=== PATIENT | male | born 1955 | race Caucasian/White ===

== ENCOUNTER 2016-11-09 11:38 | Inpatient (IN) | payer OTHER ==
[2016-11-09 14:15] VITALS: BMI 29.5
--- NOTE | 2016-11-09 19:11 | HP ---
CIWA Score - CIWA Score Nausea/Vomitin-Mild Nausea/No Vomiting Muscle Tremors: 4-Moderate,w/Arms Extend Anxiety: 4-Mod. Anxious/Guarded Agitation: 4-Moderately Restless Paroxysmal Sweats: 1-Minimal Palms Moist Orientation: 0-Oriented Tacttile Disturbances: 0-None Auditory Disturbances: 0-None Visual Disturbances: 0-None Headache: 0-None Present CIWA-Ar Total Score: 14 Admission ROS BHS - HPI Chief Complaint: WITHDRAWAL SX LAST DETOX 07/30-08/04/16 AT [facility] Allergies/Adverse Reactions: Allergies Allergy/AdvReac Type Severity Reaction Status Date / Time No Known Allergies Allergy Verified 11/09/16 16:49 History of Present Illness: 61 YEARS OLD MALE WITH LONG HISTORY OF ALCOHOL NICOTINE COCAINE MARIJUANA DEPENDENCE HAS GERD AND RIGHT HIP REPLACEMENT AND BIPOLAR II IS ADMITTED TO DETOX Exam Limitations: No Limitations - Ebola screening Have you traveled outside of the country in the last 21 days: No Have you had contact with anyone from an Ebola affected area: No Have you been sick,other than usual withdrawal symptoms: No Do you have a fever: No - Review of Systems Constitutional: Chills, Changes in sleep, Weight Stable EENT: reports: No Symptoms Reported Respiratory: reports: No Symptoms reported Cardiac: reports: No Symptoms Reported GI: reports: Nausea, Poor Fluid Intake, Indigestion, Abdominal cramping : reports: No Symptoms Reported Musculoskeletal: reports: Back Pain (ARTHRITIS), Joint Pain (SHOULDERS) Integumentary: reports: No Symptoms Reported Neuro: reports: Tremors Endocrine: reports: No Symptoms Reported Hematology: reports: No Symptoms Reported Psychiatric: reports: Judgement Intact, Mood/Affect Appropiate, Orientated x3 Other Systems: Reviewed and Negative Patient History - Patient Medical History Hx Anemia: No Hx Asthma: No Hx Chronic Obstructive Pulmonary Disease (COPD): No Hx Cancer: No Hx Cardiac Disorders: No Hx Congestive Heart Failure: No Hx Hypertension: Yes (not currently on meds.) Hx Hypercholesterolemia: Yes (BY HISTORY NO MED) Hx Pacemaker: No HX Cerebrovascular Accident: No Hx Seizures: No Hx Diabetes: No Hx Gastrointestinal Disorders: Yes Hx Liver Disease: No Hx Genitourinary Disorders: No Hx Sexually Transmitted Disorders: No Hx Renal Disease (ESRD): No Hx Thyroid Disease: Yes (HYPOTHYROIDISM NO MED) Hx Human Immunodeficiency Virus (HIV): No Hx Hepatitis C: No Hx Depression: No Hx Suicide Attempt: Yes (Pt tried to overdose in 2012) Hx Bipolar Disorder: Yes (BIPOLAR II) Hx Schizophrenia: No - Patient Surgical History Past Surgical History: Yes Hx Neurologic Surgery: No Hx Cataract Extraction: No Hx Cardiac Surgery: No Hx Lung Surgery: No Hx Breast Surgery: No Hx Breast Biopsy: No Hx Abdominal Surgery: No Hx Appendectomy: No Hx Cholecystectomy: No Hx Genitourinary Surgery: No Hx Orthopedic Surgery: Yes (R hip replacement in 05/11) Anesthesia Reaction: No - PPD History Previous Implant?: Yes Documented Results: Negative w/o proof Implanted On Prior R Admission?: Yes Date: 08/02/15 PPD to be Administered?: Yes - Smoking Cessation Smoking history: Current every day smoker Have you smoked in the past 12 months: Yes Aproximately how many cigarettes per day: 40 Cigars Per Day: 5 Hx Chewing Tobacco Use: No Initiated information on smoking cessation: Yes 'Breaking Loose' booklet given: 11/09/16 - Substance & Tx. History Hx Alcohol Use: Yes Hx Substance Use: Yes Substance Use Type: Alcohol, Cocaine, Marijuana Hx Substance Use Treatment: Yes (07/30-08/05/15 [facility] DETOX) - Substances Abused Alcohol Route: Oral Frequency: Daily Amount used: 6PK BEER Age of first use: 13 Date of Last Use: 11/08/16 Crack Route: Smoking Frequency: Daily Amount used: $60 Age of first use: 28 Date of Last Use: 11/07/16 Marijuana/Hashish Route: Smoking Frequency: Daily Amount used: 3 JOINTS Age of first use: 13 Date of Last Use: 11/08/16 Family Disease History - Family Disease History Family Disease History: Respiratory: Father (ASTHMA,ALCOHOL ), Other: Father, Mother (ALCOHOLIC ), Sister (ALCOHOLIC) Admission Physical Exam BHS - Vital Signs Vital Signs: Vital Signs - 24 hr 11/09/16 14:03 Temperature 97 F L Pulse Rate 64 Respiratory 20 Rate Blood Pressure 135/84 - Physical General Appearance: Yes: Appropriately Dressed, Mild Distress, Obese, Tremorous , Irritable, Sweating, Anxious HEENTM: Yes: Hearing grossly Normal, Normal ENT Inspection, Normocephalic, Normal Voice Respiratory: Yes: Chest Non-Tender, Lungs Clear, Normal Breath Sounds, No Respiratory Distress, No Accessory Muscle Use Neck: Yes: Supple, Trachea in good position Breast: Yes: Breasts Symetrical Cardiology: Yes: Regular Rhythm, Regular Rate, S1, S2 Abdominal: Yes: Non Tender, Soft Genitourinary: Yes: Within Normal Limits Back: Yes: Normal Inspection Musculoskeletal: Yes: full range of Motion, Gait Steady Extremities: Yes: Normal Inspection, Normal Range of Motion, Non-Tender, Tremors Neurological: Yes: Fully Oriented, Alert, Motor Strength 5/5, Normal Mood/Affect , Normal Response Integumentary: Yes: Warm Lymphatic: Yes: Within Normal Limits - Diagnostic (1) Alcohol dependence with uncomplicated withdrawal Current Visit: Yes Status: Acute (2) Bipolar II disorder Current Visit: Yes Status: Suspected (3) Cannabis dependence, uncomplicated Current Visit: Yes Status: Chronic (4) Cocaine dependence, uncomplicated Current Visit: Yes Status: Chronic (5) GERD with esophagitis Current Visit: Yes Status: Chronic (6) History of right hip replacement Current Visit: Yes Status: Resolved Comment: 2015 Cleared for Admission [facility] - Detox or Rehab [facility] Level of Care: Medically Managed Detox Regimen/Protocol: Librium [facility] Breath Alcohol Content Breath Alcohol Content: 0 Urine Drug Screen - Results Drug Screen Negative: No Urine Drug Screen Results: THC-Marijuana, LAZARO-Cocaine
[2016-11-09] MEDS ORDERED: MAGNESIUM CITRATE 300 ML BOTTLE PO PRN (19:18)
[2016-11-09] MEDS ORDERED: MAGNESIUM HYDROX 2400MG/30ML ORAL SUSPENSION 30 ML CUP PO PRN (19:18)
[2016-11-09] MEDS ORDERED: MAG HYDROX/AL HYDROX/SIMETH 30 ML UNIT-DOSE CUP PO PRN (19:18)
[2016-11-09] MEDS ORDERED: diphenhydrAMINE HCL 50 MG CAPSULE PO PRN (19:18)
[2016-11-09] MEDS ORDERED: P-EPHED 60MG/TRIPROLIDI 2.5MG TABLET PO PRN (19:18)
[2016-11-09] MEDS ORDERED: MENTHOL/PHENOL 1 EACH UD MM PRN (19:18)
[2016-11-09] MEDS ORDERED: guaiFENesin/D-METHORPHAN HB 10 ML UNIT-DOSE CUPS PO PRN (19:18)
[2016-11-09] MEDS: chlordiazePOXIDE HCL 25 MG CAPSULE PO PRN (20:03)
[2016-11-09] MEDS: chlordiazePOXIDE HCL 25 MG CAPSULE PO SCH (22:31)
[2016-11-09] MEDS: THIAMINE HCL 100 MG TABLET (FP) PO SCH (22:32)
[2016-11-09] MEDS: NICOTINE POLACRILEX 4 MG GUM BC PRN (22:34)
[2016-11-09 23:09] LABS: URINE APPEARANCE CLEAR; URINE BILIRUBIN NEGATIVE (NEGATIVE); URINE BLOOD NEGATIVE (NEGATIVE); URINE COLOR YELLOW; URINE GLUCOSE (UA) NEGATIVE (NEGATIVE); URINE KETONE NEGATIVE (NEGATIVE); URINE LEUK ESTERASE NEGATIVE (NEGATIVE); URINE NITRITE NEGATIVE (NEGATIVE); URINE PROTEIN NEGATIVE (NEGATIVE); URINE UROBILINOGEN NEGATIVE mg/dL (0.2-1.0)
[2016-11-10] MEDS: chlordiazePOXIDE HCL 25 MG CAPSULE PO SCH ×4 (05:45→22:30)
[2016-11-10] MEDS: ACETAMINOPHEN 325 MG TABLET (FP) PO PRN ×2 (05:46→22:30)
[2016-11-10] MEDS: NICOTINE POLACRILEX 4 MG GUM BC PRN ×5 (07:28→22:32)
[2016-11-10 10:03] LABS: MCH 33.9 pg (25.7-33.7); MCHC 34.4 g/dl (32.0-35.9); MEAN CELL VOLUME 98.6 fl (80-96); MEAN PLT VOLUME 6.9 fl (7.5-11.1); PLATELET COUNT 284 K/MM3 (134-434); RDW 12.6 % (11.9-15.9); WHITE BLOOD COUNT 7.4 K/mm3 (4.0-10.0)
--- NOTE | 2016-11-10 10:08 | PN ---
S CIWA - CIWA Score Nausea/Vomitin Muscle Tremors: 3 Anxiety: 3 Agitation: 2 Paroxysmal Sweats: 1-Minimal Palms Moist Orientation: 0-Oriented Tacttile Disturbances: 1-Very Mild Itch/Numbness Auditory Disturbances: 1-Very Mild Visual Disturbances: 1-Very Mild Sensitivity Headache: 2-Mild CIWA-Ar Total Score: 17 BHS Progress Note (SOAP) Subjective: ALERT,IRRITABLE,ANXIOUS,INTERRUPTED SLEEP,TREMOR Objective: 11/10/16 10:06 Vital Signs Temperature 97.2 F L 11/10/16 06:23 Pulse Rate 53 L 11/10/16 06:23 Respiratory Rate 16 11/10/16 06:23 Blood Pressure 128/87 11/10/16 06:23 O2 Sat by Pulse Oximetry (%) EKG SINUS BRADYCARDIA IST DEGREE AV BLOCK RATE 57/MIN NO CHEST PAIN,NO SOB,NO DIZZINESS Laboratory Last Values Urine Color Yellow 11/09/16 19:05 Urine Appearance Clear 11/09/16 19:05 Urine pH 5.0 (5.0-8.0) 11/09/16 19:05 Ur Specific [place] 1.025 (1.005-1.025) 11/09/16 19:05 Urine Protein Negative (NEGATIVE) 11/09/16 19:05 Urine Glucose (UA) Negative (NEGATIVE) 11/09/16 19:05 Urine Ketones Negative (NEGATIVE) 11/09/16 19:05 Urine Blood Negative (NEGATIVE) 11/09/16 19:05 Urine Nitrite Negative (NEGATIVE) 11/09/16 19:05 Urine Bilirubin Negative (NEGATIVE) 11/09/16 19:05 Urine Urobilinogen Negative mg/dL (0.2-1.0) 11/09/16 19:05 Ur Leukocyte Esterase Negative (NEGATIVE) 11/09/16 19:05 LABS PENDING Assessment: 11/10/16 10:07 WITHDRAWAL SYMPTOM Plan: CONTINUE DETOX
[2016-11-10 10:18] LABS: ALBUMIN 3.4 g/dl (3.4-5.0); ANION GAP 7 (8-16); CALCIUM 8.9 mg/dL (8.5-10.1); CO2 29 mmol/L (21-32); GLUCOSE,RANDOM 90 mg/dL (74-106)
[2016-11-10 10:22] LABS: ALK PHOS 66 U/L (45-117); BILIRUBIN,TOTAL 0.9 mg/dL (0.2-1.0); SGOT/AST 17 U/L (15-37); SGPT/ALT 18 U/L (12-78); TOT PROT 6.3 g/dl (6.4-8.2)
[2016-11-10] MEDS: PATIENT'S OWN MEDICATION (NON-FORMULARY) (Lansoprazole 30 MG) PO SCH (10:36)
[2016-11-10] MEDS: PRENATAL VITAMINS W/ FOLIC ACID TABLET (FP) PO SCH (10:36)
[2016-11-10] MEDS: NICOTINE 21 MG/24 HOURS TOPICAL PATCH TD SCH (10:38)
--- NOTE | 2016-11-10 12:26 | CONSULT ---
[facility] Psychiatric Consult - Data Date of interview: 11/10/16 Admission source: [facility] Identifying data: Readmission to [facility] for this 61 y/o male seeking detox treatment on for alcohol,marijuana and cocaine (crack) dependence.Patient is single without children,domiciled,unemployed and supported on [facility] benefits. Substance Abuse History: Patient admits to abusing alcohol since age 13.Consumes one 6 pack of beer daily but prefers wine when money is available.Last used alcohol on 11/08/16.Smokes 3 joints/day.Age 13 is the onset of marijuana abuse (last use on ).Started using crack in 1983.Spends an average of 60 dollars/day.last use : 11/06/16.Patient smokes 2 1/2 packs of cigarettes daily. 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 Psychiatric History: Diagnosed with Bipolar II disorder.Patient presents with a history of multiple psychiatric hospitalizations since 1979 (more than 10).He is known to [facility] (last admission in 2014 + current site of OPD care).Managed by Dr Rosy Urena on a regimen of trazodone 100 mg/hs + paxil 30 mg/day + latuda 30 mg/day + lamictal 200 mg/day.Last took his medications two days ago (self report).Mr Hutson reports a history of suicide attempt via overdose with medications five years ago.Patient is a good and reliable historian. Physical/Sexual Abuse/Trauma History: Patient denies. Additional Comment: Urine Drug Screen is positive for marijuana and cocaine. Mental Status Exam - Mental Status Exam Alert and Oriented to: Time, Place, Person Cognitive Function: Good Patient Appearance: Well Groomed Mood: Hopeful, Euthymic Affect: Appropriate, Normal Range Patient Behavior: Appropriate, Cooperative Speech Pattern: Clear Voice Loudness: Normal Thought Process: Goal Oriented Thought Disorder: Not Present Hallucinations: Denies Suicidal Ideation: Denies Homicidal Ideation: Denies Insight/Judgement: Poor Sleep: Fair Appetite: Good Muscle strength/Tone: Normal Gait/Station: Normal Psychiatric Findings - Problem List ([place] 1, 2,3) (1) Bipolar II disorder Current Visit: Yes Status: Chronic (2) Alcohol dependence with uncomplicated withdrawal Current Visit: Yes Status: Acute (3) Cannabis dependence, uncomplicated Current Visit: Yes Status: Acute (4) Cocaine dependence, uncomplicated Current Visit: Yes Status: Acute (5) Nicotine dependence Current Visit: Yes Status: Acute (6) GERD with esophagitis Current Visit: Yes Status: Chronic (7) History of right hip replacement Current Visit: Yes Status: Resolved Comment: 2016 (8) HTN (hypertension) Current Visit: Yes Status: Chronic Qualifiers: Hypertension type: essential hypertension (9) Hypercholesterolemia Current Visit: Yes Status: Chronic (10) Hypothyroidism Current Visit: Yes Status: Chronic Qualifiers: Hypothyroidism type: acquired Qualified Code(s): E03.9 - Hypothyroidism, unspecified - Initial Treatment Plan Initial Treatment Plan: Psychoeducation and support.Previous records are revisited.[facility] report appreciated.Detoxification is in progress.Recent pharmacy claims noted : scripts filled on 11/04/16 at [facility] # [id number] for latuda 20 mg/day + lamictal 200 mg/day + paxil 30 mg/day + trazodone 100 mg/hs.Re-ordered on .Side effects/benefits of each medication discussed with the patient.Made aware,in particular,of potential for exfoliative dermatitis (lamotrigine) and instructed to alert staff if occurrence of skin rash.Mr Hutson endorses history of good tolerability and efficacy.Wants to stay on this regimen.Observation.NO scripts needed at discharge.
[2016-11-10] MEDS: chlordiazePOXIDE HCL 25 MG CAPSULE PO PRN (14:05)
[2016-11-10] MEDS: LURASIDONE HCL 20 MG TABLET PO SCH (15:25)
--- NOTE | 2016-11-10 17:07 | EKG ---
Test Reason : Blood Pressure : / mmHG Vent. Rate : 057 BPM Atrial Rate : 057 BPM P-R Int : 224 ms QRS Dur : 076 ms QT Int : 392 ms P-R-T Axes : 067 015 032 degrees QTc Int : 381 ms SINUS BRADYCARDIA WITH 1ST DEGREE A-V BLOCK EARLY TRANSITION IN v2 NO PREVIOUS ECGS AVAILABLE Confirmed by ANDREZ TAVERAS MD ([id number]) on 11/10/2016 5:07:20 PM Referred By: Confirmed By:ANDREZ TAVERAS MD
[2016-11-10] MEDS: THIAMINE HCL 100 MG TABLET (FP) PO SCH (22:30)
[2016-11-10] MEDS: traZODone HCL 100 MG TABLET (FP) PO SCH (22:30)
[2016-11-11] MEDS: chlordiazePOXIDE HCL 25 MG CAPSULE PO SCH ×3 (06:10→17:58)
[2016-11-11] MEDS: NICOTINE POLACRILEX 4 MG GUM BC PRN ×5 (06:12→22:35)
[2016-11-11] MEDS: ACETAMINOPHEN 325 MG TABLET (FP) PO PRN (06:13)
--- NOTE | 2016-11-11 10:46 | PN ---
[facility] CIWA - CIWA Score Nausea/Vomitin-Mild Nausea/No Vomiting Muscle Tremors: 2 Anxiety: 2 Agitation: 2 Paroxysmal Sweats: 3 Orientation: 0-Oriented Tacttile Disturbances: 1-Very Mild Itch/Numbness Auditory Disturbances: 0-None Visual Disturbances: 0-None Headache: 0-None Present CIWA-Ar Total Score: 11 S Progress Note (SOAP) Subjective: interrupted sleep, sweats, shakes Objective: 11/11/16 10:46 Vital Signs Temperature 97 F L 11/11/16 06:47 Pulse Rate 60 11/11/16 06:47 Respiratory Rate 16 11/11/16 06:47 Blood Pressure 110/73 11/11/16 06:47 O2 Sat by Pulse Oximetry (%) Laboratory Tests 11/09/16 11/10/16 11/10/16 19:05 06:30 06:30 WBC 7.4 RBC 4.33 Hgb 14.7 Hct 42.7 MCV 98.6 H MCH 33.9 H MCHC 34.4 RDW 12.6 D Plt Count 284 MPV 6.9 L Sodium 139 Potassium 4.5 Chloride 103 Carbon Dioxide 29 Anion Gap 7 L BUN 18 Creatinine 1.0 Creat Clearance w eGFR > 60 Random Glucose 90 Calcium 8.9 Total Bilirubin 0.9 D AST 17 D ALT 18 D Alkaline Phosphatase 66 D Total Protein 6.3 L Albumin 3.4 Urine Color Yellow Urine Appearance Clear Urine pH 5.0 Ur Specific [place] 1.025 Urine Protein Negative Urine Glucose (UA) Negative Urine Ketones Negative Urine Blood Negative Urine Nitrite Negative Urine Bilirubin Negative Urine Urobilinogen Negative Ur Leukocyte Esterase Negative RPR Titer 11/10/16 06:30 WBC RBC Hgb Hct MCV MCH MCHC RDW Plt Count MPV Sodium Potassium Chloride Carbon Dioxide Anion Gap BUN Creatinine Creat Clearance w eGFR Random Glucose Calcium Total Bilirubin AST ALT Alkaline Phosphatase Total Protein Albumin Urine Color Urine Appearance Urine pH Ur Specific [place] Urine Protein Urine Glucose (UA) Urine Ketones Urine Blood Urine Nitrite Urine Bilirubin Urine Urobilinogen Ur Leukocyte Esterase RPR Titer Nonreactive pt aox3 in nad ambulating 11/11/16 10:51 Assessment: 11/11/16 10:50 withdrawal sxs Plan: cont. detox increase fluids
[2016-11-11] MEDS: PARoxetine HCL 10 MG TABLET (FP) PO SCH (11:27)
[2016-11-11] MEDS: lamoTRIgine 100 MG TABLET (FP) PO SCH (11:27)
[2016-11-11] MEDS: LURASIDONE HCL 20 MG TABLET PO SCH (11:27)
[2016-11-11] MEDS: PATIENT'S OWN MEDICATION (NON-FORMULARY) (Lansoprazole 30 MG) PO SCH (11:29)
[2016-11-11] MEDS: NICOTINE 21 MG/24 HOURS TOPICAL PATCH TD SCH (11:31)
[2016-11-11] MEDS: PRENATAL VITAMINS W/ FOLIC ACID TABLET (FP) PO SCH (11:32)
[2016-11-11] MEDS: chlordiazePOXIDE HCL 25 MG CAPSULE PO PRN (14:06)
[2016-11-11] MEDS: traZODone HCL 100 MG TABLET (FP) PO SCH (22:35)
[2016-11-11] MEDS: chlordiazePOXIDE 5 MG CAPSULE PO SCH (22:35)
[2016-11-11] MEDS: THIAMINE HCL 100 MG TABLET (FP) PO SCH (22:35)
[2016-11-12] MEDS: chlordiazePOXIDE 5 MG CAPSULE PO SCH ×3 (06:03→17:47)
[2016-11-12] MEDS: PARoxetine HCL 10 MG TABLET (FP) PO SCH (11:04)
[2016-11-12] MEDS: lamoTRIgine 100 MG TABLET (FP) PO SCH (11:04)
[2016-11-12] MEDS: NICOTINE 21 MG/24 HOURS TOPICAL PATCH TD SCH (11:05)
[2016-11-12] MEDS: PRENATAL VITAMINS W/ FOLIC ACID TABLET (FP) PO SCH (11:05)
[2016-11-12] MEDS: PATIENT'S OWN MEDICATION (NON-FORMULARY) (Lansoprazole 30 MG) PO SCH (11:06)
[2016-11-12] MEDS: ACETAMINOPHEN 325 MG TABLET (FP) PO PRN ×2 (11:11→22:18)
--- NOTE | 2016-11-12 11:14 | PN ---
S Progress Note (SOAP) Subjective: ALERT,IRRITABLE,INTERRUPTED SLEEP Objective: 11/12/16 11:13 Vital Signs Temperature 97.7 F 11/12/16 10:00 Pulse Rate 65 11/12/16 10:00 Respiratory Rate 18 11/12/16 10:00 Blood Pressure 123/82 11/12/16 10:00 O2 Sat by Pulse Oximetry (%) Assessment: 11/12/16 11:13 WITHDRAWAL SYMPTOM Plan: CONTINUE DETOX,DISCHARGE IN AM
[2016-11-12] MEDS: NICOTINE POLACRILEX 4 MG GUM BC PRN ×4 (11:15→20:33)
[2016-11-12] MEDS: LURASIDONE HCL 20 MG TABLET PO SCH (11:22)
[2016-11-12] MEDS: chlordiazePOXIDE HCL 25 MG CAPSULE PO PRN (14:36)
[2016-11-12] MEDS: hydrOXYzine PAMOATE 50 MG CAPSULE (FP) PO PRN (19:38)
[2016-11-12] MEDS: THIAMINE HCL 100 MG TABLET (FP) PO SCH (22:16)
[2016-11-12] MEDS: traZODone HCL 100 MG TABLET (FP) PO SCH (22:16)
[2016-11-12] MEDS: chlordiazePOXIDE HCL 10 MG CAPSULE PO SCH (22:16)
[2016-11-13] MEDS: chlordiazePOXIDE HCL 10 MG CAPSULE PO SCH ×2 (05:42→11:07)
[2016-11-13] MEDS: ACETAMINOPHEN 325 MG TABLET (FP) PO PRN ×3 (05:43→21:41)
[2016-11-13] MEDS: NICOTINE POLACRILEX 4 MG GUM BC PRN ×4 (05:44→21:42)
--- NOTE | 2016-11-13 08:22 | DS ---
[facility] Detox Discharge Summary Admission Date: 11/09/16 Discharge Date: 11/13/16 - History Present History: Alcohol Dependence, Cannabis Dependence, Cocaine Dependence Additional Comments: FOLLOW UP WITH AFTER CARE PROGRAM ARRANGEMENT Pertinent Past History: GERD RIGHT HIP REPLACEMENT BIPOLAR 2 DISORDER - Physical Exam Results Vital Signs: Vital Signs Temperature 98.1 F 11/13/16 06:00 Pulse Rate 52 L 11/13/16 06:00 Respiratory Rate 18 11/13/16 06:00 Blood Pressure 107/67 11/13/16 06:00 O2 Sat by Pulse Oximetry (%) Pertinent Admission Physical Exam Findings: WITHDRAWAL SYMPTOM - Treatment Hospital Course: Detox Protocol Followed, Detoxed Safely, Responded well, Discharged Condition Good Patient has Accepted a Rehab Referral to: [facility] - Medication Discharge Medications: Ambulatory Orders Trazodone HCl [Desyrel -] 100 mg PO HS 07/31/15 Lamotrigine [Lamictal -] 200 mg PO DAILY #30 tablet 08/01/15 Lurasidone HCl [Latuda -] 20 mg PO DAILY #30 tablet 08/01/15 Paroxetine HCl [Paxil -] 30 mg PO DAILY #30 tablet 08/01/15 Lansoprazole [Prevacid -] 30 mg PO DAILY 11/09/16 Lansoprazole [Prevacid -] 30 mg PO DAILY 11/09/16 Acetaminophen [Tylenol Extra Strength] 500 mg PO Q4H PRN #30 tab 11/12/16 Aspirin [ASA -] 81 mg PO DAILY #30 tab 11/12/16 - AMA Did Patient Leave Against Medical Advice: No
[2016-11-13] MEDS: LURASIDONE HCL 20 MG TABLET PO SCH (11:06)
[2016-11-13] MEDS: lamoTRIgine 100 MG TABLET (FP) PO SCH (11:07)
[2016-11-13] MEDS: NICOTINE 21 MG/24 HOURS TOPICAL PATCH TD SCH (11:07)
[2016-11-13] MEDS: PARoxetine HCL 10 MG TABLET (FP) PO SCH (11:07)
[2016-11-13] MEDS: PATIENT'S OWN MEDICATION (NON-FORMULARY) (Lansoprazole 30 MG) PO SCH (11:10)
[2016-11-13] MEDS: PRENATAL VITAMINS W/ FOLIC ACID TABLET (FP) PO SCH (11:16)
[2016-11-13] MEDS: LOPERAMIDE HCL 2 MG CAPSULE PO PRN ×2 (11:41→18:08)
--- NOTE | 2016-11-13 14:38 | HP ---
Psychiatrist Admission - Data Date of interview: 11/13/16 Admission source: 6N Identifying data: This is the first 5N inpatient rehabilitation admission for this 61 year ols antoinette unemployed and currently homeless male without children, supported on SSD. Medical History: GERD, HTN, smokes cigarettes 2.5 PPD. Psychiatric History: Carries a diagnosis of BIpolar II. Patient reports first psychiatric treatment in s "I was withdrawing from stimulants", saw the private psychiatrist and was under the treatment. Reports several "more than 10 " psychiatric hospitalizations with most recent 3 years ago at [facility], sees the psychiatrist at [facility] opd Dr.Susan Urena and currently on Lamictal 200 mg po daily, Latuda 30 mg daily, Trazodone 100 mg po hs, Paxil 30 mg po daily. He continued the same medications while in detox. Patient reported that he might leave because he wanted to go to the different program ([facility]). Physical/Sexual Abuse/Trauma History: Denies history of sexual, physical and verbal abuse. Vital Signs: Vital Signs - 24 hr 11/12/16 11/12/16 11/12/16 15:52 18:18 21:59 Temperature 98.1 F 97.0 F L 98.1 F Pulse Rate 63 58 L 60 Respiratory 18 18 18 Rate Blood Pressure 131/91 128/85 136/87 11/13/16 11/13/16 11/13/16 00:30 03:30 06:00 Temperature 98.1 F Pulse Rate 52 L Respiratory 18 18 18 Rate Blood Pressure 107/67 11/13/16 11/13/16 10:00 13:35 Temperature 97.9 F 98 F Pulse Rate 65 66 Respiratory 18 18 Rate Blood Pressure 129/75 116/80 Allergies/Adverse Reactions: Allergies Allergy/AdvReac Type Severity Reaction Status Date / Time No Known Allergies Allergy Verified 11/13/16 13:09 Date of last physical exam: 11/09/16 Concur with the findings of this exam: Yes - Substance Abuse/Tx History Hx Alcohol Use: Yes (since age 13, consumes one 6 packs of beer dailly) Substance Use Type: Cocaine (460 daily), Marijuana (started age age 13, daily use of 3 joints) Hx Substance Use Treatment: Yes ([facility], BlaisedERIN marvin ) - Admission Criteria Previous failed treatment: Yes Poor recovery environment: Yes Comorbidities: Yes Lacks judgement: Yes Mental Status Exam - Mental Status Exam Alert and Oriented to: Time, Place, Person Cognitive Function: Good Patient Appearance: Well Groomed Mood: Anxious Affect: Appropriate, Mood Congruent Patient Behavior: Cooperative Speech Pattern: Clear, Appropriate Voice Loudness: Normal Thought Process: Goal Oriented Thought Disorder: Not Present Hallucinations: Denies Suicidal Ideation: Denies Homicidal Ideation: Denies Insight/Judgement: Fair Sleep: Fair Appetite: Good Muscle strength/Tone: Normal Gait/Station: Normal Psychiatric Findings - Problem List ([place] 1, 2,3) (1) Cannabis dependence, uncomplicated Current Visit: Yes Status: Acute (2) Cocaine dependence, uncomplicated Current Visit: Yes Status: Acute (3) Nicotine dependence Current Visit: Yes Status: Acute (4) Bipolar II disorder Current Visit: Yes Status: Chronic (5) Alcohol dependence Current Visit: Yes Status: Acute - Initial Treatment Plan Initial Treatment Plan: will continue current medications, monitor progress as needed.
[2016-11-13] MEDS: THIAMINE HCL 100 MG TABLET (FP) PO SCH (21:40)
[2016-11-13] MEDS: traZODone HCL 100 MG TABLET (FP) PO SCH (21:40)
[2016-11-14] MEDS: ACETAMINOPHEN 325 MG TABLET (FP) PO PRN ×2 (06:28→21:17)
[2016-11-14] MEDS: LOPERAMIDE HCL 2 MG CAPSULE PO PRN ×2 (06:28→21:17)
[2016-11-14] MEDS: NICOTINE POLACRILEX 4 MG GUM BC PRN ×5 (06:28→21:18)
[2016-11-14] MEDS: PATIENT'S OWN MEDICATION (NON-FORMULARY) (Lansoprazole 30 MG) PO SCH (09:51)
[2016-11-14] MEDS: PARoxetine HCL 10 MG TABLET (FP) PO SCH (09:51)
[2016-11-14] MEDS: PRENATAL VITAMINS W/ FOLIC ACID TABLET (FP) PO SCH (09:51)
[2016-11-14] MEDS: NICOTINE 21 MG/24 HOURS TOPICAL PATCH TD SCH (09:52)
[2016-11-14] MEDS: hydrOXYzine PAMOATE 50 MG CAPSULE (FP) PO PRN ×2 (09:52→17:55)
[2016-11-14] MEDS: lamoTRIgine 100 MG TABLET (FP) PO SCH (09:52)
[2016-11-14] MEDS: LURASIDONE HCL 20 MG TABLET PO SCH (12:13)
[2016-11-14] MEDS: traZODone HCL 100 MG TABLET (FP) PO SCH (21:16)
[2016-11-14] MEDS: THIAMINE HCL 100 MG TABLET (FP) PO SCH (21:16)
[2016-11-15] MEDS: LOPERAMIDE HCL 2 MG CAPSULE PO PRN ×2 (06:29→17:36)
[2016-11-15] MEDS: NICOTINE POLACRILEX 4 MG GUM BC PRN ×4 (06:29→21:16)
[2016-11-15] MEDS: ACETAMINOPHEN 325 MG TABLET (FP) PO PRN ×2 (06:29→21:17)
[2016-11-15] MEDS: PATIENT'S OWN MEDICATION (NON-FORMULARY) (Lansoprazole 30 MG) PO SCH (09:50)
[2016-11-15] MEDS: lamoTRIgine 100 MG TABLET (FP) PO SCH (09:50)
[2016-11-15] MEDS: hydrOXYzine PAMOATE 50 MG CAPSULE (FP) PO PRN ×2 (09:50→17:34)
[2016-11-15] MEDS: PRENATAL VITAMINS W/ FOLIC ACID TABLET (FP) PO SCH (09:50)
[2016-11-15] MEDS: PARoxetine HCL 10 MG TABLET (FP) PO SCH (09:50)
[2016-11-15] MEDS: LURASIDONE HCL 20 MG TABLET PO SCH (09:51)
[2016-11-15] MEDS: NICOTINE 21 MG/24 HOURS TOPICAL PATCH TD SCH (09:53)
[2016-11-15] MEDS: traZODone HCL 100 MG TABLET (FP) PO SCH (21:16)
[2016-11-15] MEDS: THIAMINE HCL 100 MG TABLET (FP) PO SCH (21:16)
[2016-11-15] MEDS ORDERED: DIPHENOXYLATE 2.5/ATROPINE.025 1 COMBO TABLET PO PRN (22:01)
[2016-11-16] MEDS: ACETAMINOPHEN 325 MG TABLET (FP) PO PRN ×2 (06:12→21:19)
[2016-11-16] MEDS: NICOTINE POLACRILEX 4 MG GUM BC PRN ×3 (06:13→21:21)
[2016-11-16] MEDS: NICOTINE 21 MG/24 HOURS TOPICAL PATCH TD SCH (09:47)
[2016-11-16] MEDS: LURASIDONE HCL 20 MG TABLET PO SCH (09:48)
[2016-11-16] MEDS: PATIENT'S OWN MEDICATION (NON-FORMULARY) (Lansoprazole 30 MG) PO SCH (09:48)
[2016-11-16] MEDS: lamoTRIgine 100 MG TABLET (FP) PO SCH (09:49)
[2016-11-16] MEDS: PRENATAL VITAMINS W/ FOLIC ACID TABLET (FP) PO SCH (09:49)
[2016-11-16] MEDS: PARoxetine HCL 10 MG TABLET (FP) PO SCH (09:52)
[2016-11-16] MEDS: hydrOXYzine PAMOATE 50 MG CAPSULE (FP) PO PRN ×2 (10:06→17:56)
[2016-11-16] MEDS: THIAMINE HCL 100 MG TABLET (FP) PO SCH (21:18)
[2016-11-16] MEDS: traZODone HCL 100 MG TABLET (FP) PO SCH (21:18)
[2016-11-17] MEDS: PATIENT'S OWN MEDICATION (NON-FORMULARY) (Lansoprazole 30 MG) PO SCH (10:04)
[2016-11-17] MEDS: PRENATAL VITAMINS W/ FOLIC ACID TABLET (FP) PO SCH (10:04)
[2016-11-17] MEDS: lamoTRIgine 100 MG TABLET (FP) PO SCH (10:04)
[2016-11-17] MEDS: PARoxetine HCL 10 MG TABLET (FP) PO SCH (10:04)
[2016-11-17] MEDS: LURASIDONE HCL 20 MG TABLET PO SCH (10:05)
[2016-11-17] MEDS: NICOTINE 21 MG/24 HOURS TOPICAL PATCH TD SCH (10:05)
[2016-11-17] MEDS: hydrOXYzine PAMOATE 50 MG CAPSULE (FP) PO PRN ×2 (10:07→14:13)
--- NOTE | 2016-11-17 13:32 | PN ---
BHS Progress Note Note: having pain in lower abdomen,stated soft,no distension,mild pain on palpation in left,no tenderness,bowel sound active
[2016-11-17] MEDS: NICOTINE POLACRILEX 4 MG GUM BC PRN ×2 (14:14→21:14)
[2016-11-17 16:29] LABS: MCH 33.3 pg (25.7-33.7); MCHC 33.4 g/dl (32.0-35.9); MEAN CELL VOLUME 99.5 fl (80-96); MEAN PLT VOLUME 7.3 fl (7.5-11.1); PLATELET COUNT 277 K/MM3 (134-434); WHITE BLOOD COUNT 11.3 K/mm3 (4.0-10.0)
[2016-11-17] MEDS: THIAMINE HCL 100 MG TABLET (FP) PO SCH (21:14)
[2016-11-17] MEDS: traZODone HCL 100 MG TABLET (FP) PO SCH (21:14)
[2016-11-18] MEDS: NICOTINE POLACRILEX 4 MG GUM BC PRN ×5 (06:10→21:10)
[2016-11-18] MEDS: ACETAMINOPHEN 325 MG TABLET (FP) PO PRN (06:10)
[2016-11-18] MEDS: LURASIDONE HCL 20 MG TABLET PO SCH (09:41)
[2016-11-18] MEDS: PATIENT'S OWN MEDICATION (NON-FORMULARY) (Lansoprazole 30 MG) PO SCH (09:41)
[2016-11-18] MEDS: lamoTRIgine 100 MG TABLET (FP) PO SCH (09:42)
[2016-11-18] MEDS: PARoxetine HCL 10 MG TABLET (FP) PO SCH (09:42)
[2016-11-18] MEDS: PRENATAL VITAMINS W/ FOLIC ACID TABLET (FP) PO SCH (09:42)
[2016-11-18] MEDS: NICOTINE 21 MG/24 HOURS TOPICAL PATCH TD SCH (09:43)
[2016-11-18] MEDS: hydrOXYzine PAMOATE 50 MG CAPSULE (FP) PO PRN (18:43)
[2016-11-18] MEDS: THIAMINE HCL 100 MG TABLET (FP) PO SCH (21:09)
[2016-11-18] MEDS: traZODone HCL 100 MG TABLET (FP) PO SCH (21:09)
[2016-11-19] MEDS: NICOTINE POLACRILEX 4 MG GUM BC PRN ×5 (05:57→21:38)
[2016-11-19] MEDS: PATIENT'S OWN MEDICATION (NON-FORMULARY) (Lansoprazole 30 MG) PO SCH (09:48)
[2016-11-19] MEDS: LURASIDONE HCL 20 MG TABLET PO SCH (09:49)
[2016-11-19] MEDS: lamoTRIgine 100 MG TABLET (FP) PO SCH (09:49)
[2016-11-19] MEDS: PRENATAL VITAMINS W/ FOLIC ACID TABLET (FP) PO SCH (09:49)
[2016-11-19] MEDS: PARoxetine HCL 10 MG TABLET (FP) PO SCH (09:49)
[2016-11-19] MEDS: NICOTINE 21 MG/24 HOURS TOPICAL PATCH TD SCH (09:49)
[2016-11-19] MEDS: hydrOXYzine PAMOATE 50 MG CAPSULE (FP) PO PRN ×2 (09:50→16:52)
--- NOTE | 2016-11-19 15:03 | PN ---
[facility] Progress Note Note: patient has no abdominal pain,had colonosopy 7 years ago,showed 2 polyps has been removed, normal bowel movement Laboratory Last Values WBC 11.3 K/mm3 (4.0-10.0) H D 11/17/16 13:30 RBC 4.35 M/mm3 (4.00-5.60) 11/17/16 13:30 Hgb 14.5 GM/dL (11.7-16.9) 11/17/16 13:30 Hct 43.2 % (35.4-49) 11/17/16 13:30 MCV 99.5 fl (80-96) H 11/17/16 13:30 MCH 33.3 pg (25.7-33.7) 11/17/16 13:30 MCHC 33.4 g/dl (32.0-35.9) 11/17/16 13:30 RDW 13.0 % (11.9-15.9) 11/17/16 13:30 Plt Count 277 K/MM3 (134-434) 11/17/16 13:30 MPV 7.3 fl (7.5-11.1) L 11/17/16 13:30 Sodium 139 mmol/L (136-145) 11/10/16 06:30 Potassium 4.5 mmol/L (3.5-5.1) 11/10/16 06:30 Chloride 103 mmol/L (98-107) 11/10/16 06:30 Carbon Dioxide 29 mmol/L (21-32) 11/10/16 06:30 Anion Gap 7 (8-16) L 11/10/16 06:30 BUN 18 mg/dL (7-18) 11/10/16 06:30 Creatinine 1.0 mg/dL (0.7-1.3) 11/10/16 06:30 Creat Clearance w eGFR > 60 (>60) 11/10/16 06:30 Random Glucose 90 mg/dL (74-106) 11/10/16 06:30 Calcium 8.9 mg/dL (8.5-10.1) 11/10/16 06:30 Total Bilirubin 0.9 mg/dL (0.2-1.0) D 11/10/16 06:30 AST 17 U/L (15-37) D 11/10/16 06:30 ALT 18 U/L (12-78) D 11/10/16 06:30 Alkaline Phosphatase 66 U/L (45-117) D 11/10/16 06:30 Total Protein 6.3 g/dl (6.4-8.2) L 11/10/16 06:30 Albumin 3.4 g/dl (3.4-5.0) 11/10/16 06:30 Urine Color Yellow 11/09/16 19:05 Urine Appearance Clear 11/09/16 19:05 Urine pH 5.0 (5.0-8.0) 11/09/16 19:05 Ur Specific [place] 1.025 (1.005-1.025) 11/09/16 19:05 Urine Protein Negative (NEGATIVE) 11/09/16 19:05 Urine Glucose (UA) Negative (NEGATIVE) 11/09/16 19:05 Urine Ketones Negative (NEGATIVE) 11/09/16 19:05 Urine Blood Negative (NEGATIVE) 11/09/16 19:05 Urine Nitrite Negative (NEGATIVE) 11/09/16 19:05 Urine Bilirubin Negative (NEGATIVE) 11/09/16 19:05 Urine Urobilinogen Negative mg/dL (0.2-1.0) 11/09/16 19:05 Ur Leukocyte Esterase Negative (NEGATIVE) 11/09/16 19:05 RPR Titer Nonreactive (NONREACTIVE) 11/10/16 06:30 clinically improved patient will 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
[2016-11-19] MEDS: traZODone HCL 100 MG TABLET (FP) PO SCH (21:37)
[2016-11-19] MEDS: THIAMINE HCL 100 MG TABLET (FP) PO SCH (21:37)
[2016-11-20] MEDS: NICOTINE POLACRILEX 4 MG GUM BC PRN ×4 (07:17→21:47)
[2016-11-20] MEDS: PARoxetine HCL 10 MG TABLET (FP) PO SCH (09:49)
[2016-11-20] MEDS: PRENATAL VITAMINS W/ FOLIC ACID TABLET (FP) PO SCH (09:49)
[2016-11-20] MEDS: LURASIDONE HCL 20 MG TABLET PO SCH (09:50)
[2016-11-20] MEDS: lamoTRIgine 100 MG TABLET (FP) PO SCH (09:50)
[2016-11-20] MEDS: PATIENT'S OWN MEDICATION (NON-FORMULARY) (Lansoprazole 30 MG) PO SCH (09:50)
[2016-11-20] MEDS: hydrOXYzine PAMOATE 50 MG CAPSULE (FP) PO PRN ×2 (09:52→14:38)
[2016-11-20] MEDS: NICOTINE 21 MG/24 HOURS TOPICAL PATCH TD SCH ×2 (09:52→10:47)
[2016-11-20] MEDS: traZODone HCL 100 MG TABLET (FP) PO SCH (21:47)
[2016-11-20] MEDS: THIAMINE HCL 100 MG TABLET (FP) PO SCH (21:47)
[2016-11-21] MEDS: NICOTINE POLACRILEX 4 MG GUM BC PRN ×3 (06:27→20:16)
[2016-11-21] MEDS: lamoTRIgine 100 MG TABLET (FP) PO SCH (09:48)
[2016-11-21] MEDS: LURASIDONE HCL 20 MG TABLET PO SCH (09:48)
[2016-11-21] MEDS: PARoxetine HCL 10 MG TABLET (FP) PO SCH (09:48)
[2016-11-21] MEDS: NICOTINE 21 MG/24 HOURS TOPICAL PATCH TD SCH (09:49)
[2016-11-21] MEDS: PRENATAL VITAMINS W/ FOLIC ACID TABLET (FP) PO SCH (09:49)
[2016-11-21] MEDS: PATIENT'S OWN MEDICATION (NON-FORMULARY) (Lansoprazole 30 MG) PO SCH (09:49)
[2016-11-21] MEDS: hydrOXYzine PAMOATE 50 MG CAPSULE (FP) PO PRN ×3 (09:50→18:22)
[2016-11-21] MEDS: traZODone HCL 100 MG TABLET (FP) PO SCH (21:20)
[2016-11-21] MEDS: THIAMINE HCL 100 MG TABLET (FP) PO SCH (21:20)
[2016-11-22] MEDS: NICOTINE POLACRILEX 4 MG GUM BC PRN ×5 (06:11→21:19)
[2016-11-22] MEDS: PARoxetine HCL 10 MG TABLET (FP) PO SCH (09:53)
[2016-11-22] MEDS: lamoTRIgine 100 MG TABLET (FP) PO SCH (09:53)
[2016-11-22] MEDS: LURASIDONE HCL 20 MG TABLET PO SCH (09:53)
[2016-11-22] MEDS: PATIENT'S OWN MEDICATION (NON-FORMULARY) (Lansoprazole 30 MG) PO SCH (09:53)
[2016-11-22] MEDS: PRENATAL VITAMINS W/ FOLIC ACID TABLET (FP) PO SCH (09:53)
[2016-11-22] MEDS: hydrOXYzine PAMOATE 50 MG CAPSULE (FP) PO PRN ×2 (09:53→14:46)
[2016-11-22] MEDS: NICOTINE 21 MG/24 HOURS TOPICAL PATCH TD SCH (09:54)
[2016-11-22] MEDS: THIAMINE HCL 100 MG TABLET (FP) PO SCH (21:18)
[2016-11-22] MEDS: traZODone HCL 100 MG TABLET (FP) PO SCH (21:18)
[2016-11-23] MEDS: NICOTINE POLACRILEX 4 MG GUM BC PRN ×4 (06:41→21:18)
[2016-11-23] MEDS: PATIENT'S OWN MEDICATION (NON-FORMULARY) (Lansoprazole 30 MG) PO SCH (09:51)
[2016-11-23] MEDS: lamoTRIgine 100 MG TABLET (FP) PO SCH (09:51)
[2016-11-23] MEDS: LURASIDONE HCL 20 MG TABLET PO SCH (09:51)
[2016-11-23] MEDS: PARoxetine HCL 10 MG TABLET (FP) PO SCH (09:51)
[2016-11-23] MEDS: PRENATAL VITAMINS W/ FOLIC ACID TABLET (FP) PO SCH (09:51)
[2016-11-23] MEDS: NICOTINE 21 MG/24 HOURS TOPICAL PATCH TD SCH (09:52)
[2016-11-23] MEDS: traZODone HCL 100 MG TABLET (FP) PO SCH (21:18)
[2016-11-23] MEDS: THIAMINE HCL 100 MG TABLET (FP) PO SCH (21:18)
[2016-11-24] MEDS: NICOTINE POLACRILEX 4 MG GUM BC PRN ×6 (06:38→21:27)
[2016-11-24] MEDS: NICOTINE 21 MG/24 HOURS TOPICAL PATCH TD SCH (10:32)
[2016-11-24] MEDS: LURASIDONE HCL 20 MG TABLET PO SCH (10:32)
[2016-11-24] MEDS: lamoTRIgine 100 MG TABLET (FP) PO SCH (10:32)
[2016-11-24] MEDS: PRENATAL VITAMINS W/ FOLIC ACID TABLET (FP) PO SCH (10:32)
[2016-11-24] MEDS: PARoxetine HCL 10 MG TABLET (FP) PO SCH (10:32)
[2016-11-24] MEDS: PATIENT'S OWN MEDICATION (NON-FORMULARY) (Lansoprazole 30 MG) PO SCH (10:32)
[2016-11-24] MEDS: traZODone HCL 100 MG TABLET (FP) PO SCH (21:26)
[2016-11-24] MEDS: THIAMINE HCL 100 MG TABLET (FP) PO SCH (21:26)
[2016-11-25] MEDS: NICOTINE POLACRILEX 4 MG GUM BC PRN ×4 (06:52→21:25)
[2016-11-25] MEDS: PARoxetine HCL 10 MG TABLET (FP) PO SCH (09:50)
[2016-11-25] MEDS: PRENATAL VITAMINS W/ FOLIC ACID TABLET (FP) PO SCH (09:50)
[2016-11-25] MEDS: lamoTRIgine 100 MG TABLET (FP) PO SCH (09:50)
[2016-11-25] MEDS: PATIENT'S OWN MEDICATION (NON-FORMULARY) (Lansoprazole 30 MG) PO SCH (09:50)
[2016-11-25] MEDS: LURASIDONE HCL 20 MG TABLET PO SCH (09:51)
[2016-11-25] MEDS: NICOTINE 21 MG/24 HOURS TOPICAL PATCH TD SCH (09:51)
[2016-11-25] MEDS: hydrOXYzine PAMOATE 50 MG CAPSULE (FP) PO PRN ×2 (13:10→20:05)
[2016-11-25] MEDS: ACETAMINOPHEN 325 MG TABLET (FP) PO PRN (17:52)
[2016-11-25] MEDS: THIAMINE HCL 100 MG TABLET (FP) PO SCH (21:24)
[2016-11-25] MEDS: traZODone HCL 100 MG TABLET (FP) PO SCH (21:24)
[2016-11-26] MEDS: NICOTINE POLACRILEX 4 MG GUM BC PRN ×4 (06:34→16:44)
[2016-11-26] MEDS: LURASIDONE HCL 20 MG TABLET PO SCH (09:55)
[2016-11-26] MEDS: PATIENT'S OWN MEDICATION (NON-FORMULARY) (Lansoprazole 30 MG) PO SCH (09:55)
[2016-11-26] MEDS: lamoTRIgine 100 MG TABLET (FP) PO SCH (09:56)
[2016-11-26] MEDS: PARoxetine HCL 10 MG TABLET (FP) PO SCH (09:56)
[2016-11-26] MEDS: PRENATAL VITAMINS W/ FOLIC ACID TABLET (FP) PO SCH (09:56)
[2016-11-26] MEDS: hydrOXYzine PAMOATE 50 MG CAPSULE (FP) PO PRN ×2 (09:57→16:44)
[2016-11-26] MEDS: NICOTINE 21 MG/24 HOURS TOPICAL PATCH TD SCH (09:58)
[2016-11-26] MEDS: ACETAMINOPHEN 325 MG TABLET (FP) PO PRN (21:23)
[2016-11-26] MEDS: THIAMINE HCL 100 MG TABLET (FP) PO SCH (21:23)
[2016-11-26] MEDS: traZODone HCL 100 MG TABLET (FP) PO SCH (21:23)
[2016-11-27] MEDS: NICOTINE POLACRILEX 4 MG GUM BC PRN ×5 (06:43→21:19)
[2016-11-27] MEDS: PRENATAL VITAMINS W/ FOLIC ACID TABLET (FP) PO SCH (09:36)
[2016-11-27] MEDS: lamoTRIgine 100 MG TABLET (FP) PO SCH (09:36)
[2016-11-27] MEDS: PARoxetine HCL 10 MG TABLET (FP) PO SCH (09:36)
[2016-11-27] MEDS: LURASIDONE HCL 20 MG TABLET PO SCH (09:37)
[2016-11-27] MEDS: PATIENT'S OWN MEDICATION (NON-FORMULARY) (Lansoprazole 30 MG) PO SCH (09:37)
[2016-11-27] MEDS: NICOTINE 21 MG/24 HOURS TOPICAL PATCH TD SCH (09:37)
[2016-11-27] MEDS: hydrOXYzine PAMOATE 50 MG CAPSULE (FP) PO PRN ×3 (12:37→23:13)
[2016-11-27] MEDS: traZODone HCL 100 MG TABLET (FP) PO SCH (21:17)
[2016-11-27] MEDS: THIAMINE HCL 100 MG TABLET (FP) PO SCH (21:17)
[2016-11-27] MEDS: ACETAMINOPHEN 325 MG TABLET (FP) PO PRN (21:18)
[2016-11-28] MEDS: NICOTINE POLACRILEX 4 MG GUM BC PRN ×6 (07:14→21:32)
[2016-11-28] MEDS: PRENATAL VITAMINS W/ FOLIC ACID TABLET (FP) PO SCH (09:53)
[2016-11-28] MEDS: PATIENT'S OWN MEDICATION (NON-FORMULARY) (Lansoprazole 30 MG) PO SCH (09:53)
[2016-11-28] MEDS: lamoTRIgine 100 MG TABLET (FP) PO SCH (09:54)
[2016-11-28] MEDS: LURASIDONE HCL 20 MG TABLET PO SCH (09:54)
[2016-11-28] MEDS: NICOTINE 21 MG/24 HOURS TOPICAL PATCH TD SCH (09:54)
[2016-11-28] MEDS: PARoxetine HCL 10 MG TABLET (FP) PO SCH (09:54)
[2016-11-28] MEDS: hydrOXYzine PAMOATE 50 MG CAPSULE (FP) PO PRN ×3 (09:55→19:16)
[2016-11-28] MEDS: ACETAMINOPHEN 325 MG TABLET (FP) PO PRN ×2 (09:56→19:16)
[2016-11-28] MEDS: THIAMINE HCL 100 MG TABLET (FP) PO SCH (21:32)
[2016-11-28] MEDS: traZODone HCL 100 MG TABLET (FP) PO SCH (21:32)
[2016-11-29] MEDS: NICOTINE POLACRILEX 4 MG GUM BC PRN ×3 (06:22→21:11)
[2016-11-29] MEDS: PATIENT'S OWN MEDICATION (NON-FORMULARY) (Lansoprazole 30 MG) PO SCH (10:05)
[2016-11-29] MEDS: NICOTINE 21 MG/24 HOURS TOPICAL PATCH TD SCH (10:06)
[2016-11-29] MEDS: lamoTRIgine 100 MG TABLET (FP) PO SCH (10:06)
[2016-11-29] MEDS: PARoxetine HCL 10 MG TABLET (FP) PO SCH (10:06)
[2016-11-29] MEDS: LURASIDONE HCL 20 MG TABLET PO SCH (10:06)
[2016-11-29] MEDS: PRENATAL VITAMINS W/ FOLIC ACID TABLET (FP) PO SCH (10:06)
[2016-11-29] MEDS: hydrOXYzine PAMOATE 50 MG CAPSULE (FP) PO PRN ×2 (12:50→20:18)
[2016-11-29] MEDS: THIAMINE HCL 100 MG TABLET (FP) PO SCH (21:10)
[2016-11-29] MEDS: traZODone HCL 100 MG TABLET (FP) PO SCH (21:11)
[2016-11-30] MEDS: NICOTINE POLACRILEX 4 MG GUM BC PRN ×5 (06:24→21:16)
[2016-11-30] MEDS: lamoTRIgine 100 MG TABLET (FP) PO SCH (10:03)
[2016-11-30] MEDS: PARoxetine HCL 10 MG TABLET (FP) PO SCH (10:04)
[2016-11-30] MEDS: LURASIDONE HCL 20 MG TABLET PO SCH (10:04)
[2016-11-30] MEDS: PATIENT'S OWN MEDICATION (NON-FORMULARY) (Lansoprazole 30 MG) PO SCH (10:04)
[2016-11-30] MEDS: PRENATAL VITAMINS W/ FOLIC ACID TABLET (FP) PO SCH (10:04)
[2016-11-30] MEDS: NICOTINE 21 MG/24 HOURS TOPICAL PATCH TD SCH (10:05)
[2016-11-30] MEDS: hydrOXYzine PAMOATE 50 MG CAPSULE (FP) PO PRN (15:47)
[2016-11-30] MEDS: THIAMINE HCL 100 MG TABLET (FP) PO SCH (21:16)
[2016-11-30] MEDS: traZODone HCL 100 MG TABLET (FP) PO SCH (21:16)
[2016-12-01] MEDS: NICOTINE POLACRILEX 4 MG GUM BC PRN ×5 (06:15→21:19)
[2016-12-01] MEDS: NICOTINE 21 MG/24 HOURS TOPICAL PATCH TD SCH (10:00)
[2016-12-01] MEDS: LURASIDONE HCL 20 MG TABLET PO SCH (10:01)
[2016-12-01] MEDS: PATIENT'S OWN MEDICATION (NON-FORMULARY) (Lansoprazole 30 MG) PO SCH (10:01)
[2016-12-01] MEDS: PRENATAL VITAMINS W/ FOLIC ACID TABLET (FP) PO SCH (10:02)
[2016-12-01] MEDS: lamoTRIgine 100 MG TABLET (FP) PO SCH (10:02)
[2016-12-01] MEDS: PARoxetine HCL 10 MG TABLET (FP) PO SCH (10:02)
[2016-12-01] MEDS: hydrOXYzine PAMOATE 50 MG CAPSULE (FP) PO PRN ×3 (10:04→18:49)
[2016-12-01] MEDS: traZODone HCL 100 MG TABLET (FP) PO SCH (21:18)
[2016-12-01] MEDS: THIAMINE HCL 100 MG TABLET (FP) PO SCH (21:18)
[2016-12-02] MEDS: NICOTINE POLACRILEX 4 MG GUM BC PRN ×5 (06:52→21:15)
[2016-12-02] MEDS: PRENATAL VITAMINS W/ FOLIC ACID TABLET (FP) PO SCH (10:19)
[2016-12-02] MEDS: lamoTRIgine 100 MG TABLET (FP) PO SCH (10:19)
[2016-12-02] MEDS: LURASIDONE HCL 20 MG TABLET PO SCH (10:19)
[2016-12-02] MEDS: PARoxetine HCL 10 MG TABLET (FP) PO SCH (10:19)
[2016-12-02] MEDS: NICOTINE 21 MG/24 HOURS TOPICAL PATCH TD SCH (10:20)
[2016-12-02] MEDS: hydrOXYzine PAMOATE 50 MG CAPSULE (FP) PO PRN ×3 (10:22→21:15)
[2016-12-02] MEDS: PATIENT'S OWN MEDICATION (NON-FORMULARY) (Lansoprazole 30 MG) PO SCH (10:22)
[2016-12-02] MEDS: traZODone HCL 100 MG TABLET (FP) PO SCH (21:14)
[2016-12-02] MEDS: THIAMINE HCL 100 MG TABLET (FP) PO SCH (21:14)
[2016-12-03] MEDS: NICOTINE POLACRILEX 4 MG GUM BC PRN ×6 (06:46→21:31)
[2016-12-03] MEDS: hydrOXYzine PAMOATE 50 MG CAPSULE (FP) PO PRN ×3 (09:53→18:29)
[2016-12-03] MEDS: PARoxetine HCL 10 MG TABLET (FP) PO SCH (09:53)
[2016-12-03] MEDS: PRENATAL VITAMINS W/ FOLIC ACID TABLET (FP) PO SCH (09:53)
[2016-12-03] MEDS: PATIENT'S OWN MEDICATION (NON-FORMULARY) (Lansoprazole 30 MG) PO SCH (09:53)
[2016-12-03] MEDS: lamoTRIgine 100 MG TABLET (FP) PO SCH (09:53)
[2016-12-03] MEDS: NICOTINE 21 MG/24 HOURS TOPICAL PATCH TD SCH (09:54)
[2016-12-03] MEDS: LURASIDONE HCL 20 MG TABLET PO SCH (09:54)
[2016-12-03] MEDS: traZODone HCL 100 MG TABLET (FP) PO SCH (21:28)
[2016-12-03] MEDS: THIAMINE HCL 100 MG TABLET (FP) PO SCH (21:29)
[2016-12-03] MEDS: ACETAMINOPHEN 325 MG TABLET (FP) PO PRN (21:30)
[2016-12-04] MEDS: NICOTINE POLACRILEX 4 MG GUM BC PRN ×6 (05:51→19:38)
[2016-12-04] MEDS: NICOTINE 21 MG/24 HOURS TOPICAL PATCH TD SCH (09:44)
[2016-12-04] MEDS: PATIENT'S OWN MEDICATION (NON-FORMULARY) (Lansoprazole 30 MG) PO SCH (09:44)
[2016-12-04] MEDS: PARoxetine HCL 10 MG TABLET (FP) PO SCH (09:44)
[2016-12-04] MEDS: LURASIDONE HCL 20 MG TABLET PO SCH (09:44)
[2016-12-04] MEDS: PRENATAL VITAMINS W/ FOLIC ACID TABLET (FP) PO SCH (09:44)
[2016-12-04] MEDS: lamoTRIgine 100 MG TABLET (FP) PO SCH (09:44)
[2016-12-04] MEDS: hydrOXYzine PAMOATE 50 MG CAPSULE (FP) PO PRN ×3 (09:45→19:38)
[2016-12-04] MEDS: traZODone HCL 100 MG TABLET (FP) PO SCH (21:21)
[2016-12-04] MEDS: THIAMINE HCL 100 MG TABLET (FP) PO SCH (21:22)
[2016-12-04] MEDS: ACETAMINOPHEN 325 MG TABLET (FP) PO PRN (21:23)
[2016-12-05] MEDS: hydrOXYzine PAMOATE 50 MG CAPSULE (FP) PO PRN ×4 (06:14→20:08)
[2016-12-05] MEDS: ACETAMINOPHEN 325 MG TABLET (FP) PO PRN ×2 (06:14→15:19)
[2016-12-05] MEDS: PRENATAL VITAMINS W/ FOLIC ACID TABLET (FP) PO SCH (09:39)
[2016-12-05] MEDS: PARoxetine HCL 10 MG TABLET (FP) PO SCH (09:39)
[2016-12-05] MEDS: lamoTRIgine 100 MG TABLET (FP) PO SCH (09:40)
[2016-12-05] MEDS: NICOTINE 21 MG/24 HOURS TOPICAL PATCH TD SCH (09:40)
[2016-12-05] MEDS ORDERED: NICOTINE POLACRILEX 4 MG GUM BUC ONE (09:42)
[2016-12-05] MEDS: NICOTINE POLACRILEX 4 MG GUM BC PRN ×5 (09:42→20:08)
[2016-12-05] MEDS: LURASIDONE HCL 20 MG TABLET PO SCH (09:43)
[2016-12-05] MEDS: PATIENT'S OWN MEDICATION (NON-FORMULARY) (Lansoprazole 30 MG) PO SCH (09:43)
[2016-12-05] MEDS: THIAMINE HCL 100 MG TABLET (FP) PO SCH (21:25)
[2016-12-05] MEDS: traZODone HCL 100 MG TABLET (FP) PO SCH (21:25)
[2016-12-06] MEDS: NICOTINE POLACRILEX 4 MG GUM BC PRN ×5 (06:20→20:47)
[2016-12-06] MEDS: PRENATAL VITAMINS W/ FOLIC ACID TABLET (FP) PO SCH (09:48)
[2016-12-06] MEDS: lamoTRIgine 100 MG TABLET (FP) PO SCH (09:48)
[2016-12-06] MEDS: PATIENT'S OWN MEDICATION (NON-FORMULARY) (Lansoprazole 30 MG) PO SCH (09:49)
[2016-12-06] MEDS: PARoxetine HCL 10 MG TABLET (FP) PO SCH (09:49)
[2016-12-06] MEDS: NICOTINE 21 MG/24 HOURS TOPICAL PATCH TD SCH (09:50)
[2016-12-06] MEDS: LURASIDONE HCL 20 MG TABLET PO SCH (10:06)
[2016-12-06] MEDS: hydrOXYzine PAMOATE 50 MG CAPSULE (FP) PO PRN ×2 (16:52→20:45)
[2016-12-06] MEDS: ACETAMINOPHEN 325 MG TABLET (FP) PO PRN (20:45)
[2016-12-06] MEDS: traZODone HCL 100 MG TABLET (FP) PO SCH (21:12)
[2016-12-06] MEDS: THIAMINE HCL 100 MG TABLET (FP) PO SCH (21:13)
[2016-12-07] MEDS: NICOTINE POLACRILEX 4 MG GUM BC PRN ×5 (06:47→21:26)
[2016-12-07] MEDS: LURASIDONE HCL 20 MG TABLET PO SCH (10:09)
[2016-12-07] MEDS: lamoTRIgine 100 MG TABLET (FP) PO SCH (10:09)
[2016-12-07] MEDS: NICOTINE 21 MG/24 HOURS TOPICAL PATCH TD SCH (10:09)
[2016-12-07] MEDS: PATIENT'S OWN MEDICATION (NON-FORMULARY) (Lansoprazole 30 MG) PO SCH (10:09)
[2016-12-07] MEDS: PARoxetine HCL 10 MG TABLET (FP) PO SCH (10:09)
[2016-12-07] MEDS: hydrOXYzine PAMOATE 50 MG CAPSULE (FP) PO PRN ×3 (10:11→18:37)
[2016-12-07] MEDS: PRENATAL VITAMINS W/ FOLIC ACID TABLET (FP) PO SCH (10:13)
[2016-12-07] MEDS: traZODone HCL 100 MG TABLET (FP) PO SCH (21:24)
[2016-12-07] MEDS: THIAMINE HCL 100 MG TABLET (FP) PO SCH (21:24)
[2016-12-07] MEDS: ACETAMINOPHEN 325 MG TABLET (FP) PO PRN (21:25)
[2016-12-08] MEDS: NICOTINE POLACRILEX 4 MG GUM BC PRN ×6 (07:10→21:32)
[2016-12-08] MEDS: lamoTRIgine 100 MG TABLET (FP) PO SCH (10:12)
[2016-12-08] MEDS: PRENATAL VITAMINS W/ FOLIC ACID TABLET (FP) PO SCH (10:12)
[2016-12-08] MEDS: PATIENT'S OWN MEDICATION (NON-FORMULARY) (Lansoprazole 30 MG) PO SCH (10:12)
[2016-12-08] MEDS: LURASIDONE HCL 20 MG TABLET PO SCH (10:12)
[2016-12-08] MEDS: PARoxetine HCL 10 MG TABLET (FP) PO SCH (10:12)
[2016-12-08] MEDS: NICOTINE 21 MG/24 HOURS TOPICAL PATCH TD SCH (10:13)
[2016-12-08] MEDS: hydrOXYzine PAMOATE 50 MG CAPSULE (FP) PO PRN ×3 (10:15→18:26)
[2016-12-08] MEDS: ACETAMINOPHEN 325 MG TABLET (FP) PO PRN ×2 (10:15→21:32)
--- NOTE | 2016-12-08 12:03 | PN ---
Psychiatric Progress Note Vital Signs: Vital Signs Period Temp Pulse Resp BP Sys/[place] Pulse Ox Last 24 Hr 97.4 F 59 18-20 134/95 Date of Session: 12/08/16 Chief Complaint:: Discharge Note HPI: Patient addressing Alcohol, Cocaine and Cannabis Dependence comorbid with Nicotine Dependence and Bipolar II Disorder ROS: HTN, Hyperlipidemia, GERD, Arthritis were medically managed Current Medications: Active Medications Generic Name Dose Route Start Last Admin Trade Name Freq PRN Reason Stop Dose Admin Acetaminophen 650 mg 11/09/16 19:18 12/08/16 10:15 Tylenol - PO 650 mg Q4H PRN Administration FEVER OR PAIN Al Hydroxide/Mg Hydroxide 30 ml 11/09/16 19:18 Mylanta Oral Suspension - PO Q6H PRN DYSPEPSIA Diphenhydramine HCl 50 mg 11/09/16 19:18 Benadryl - PO HSMR1 PRN INSOMNIA Eucalyptus/Menthol/Phenol/Sorbitol 1 each 11/09/16 19:18 Cepastat Lozenge - MM Q4H PRN SORE THROAT Guaifenesin 10 ml 11/09/16 19:18 Robitussin Dm - PO Q6H PRN COUGH Hydroxyzine Pamoate 50 mg 11/09/16 19:18 12/08/16 10:15 Vistaril - PO 50 mg Q4H PRN Administration AGITATION Lamotrigine 200 mg 11/11/16 10:00 12/08/16 10:12 Lamictal - PO 200 mg DAILY LYDIA Administration Lurasidone HCl 20 mg 11/10/16 13:00 12/08/16 10:12 Latuda - PO 20 mg DAILY LYDIA Administration Magnesium Citrate 300 ml 11/09/16 19:18 Citroma - PO Q48H PRN CONSTIPATION Magnesium Hydroxide 30 ml 11/09/16 19:18 Milk Of Magnesia - PO DAILY PRN CONSTIPATION Nicotine 21 mg 11/10/16 10:00 12/08/16 10:13 Nicoderm Patch - TD 21 mg DAILY LYDIA Administration Nicotine Polacrilex 4 mg 11/09/16 19:18 12/08/16 10:15 Nicorette Gum - BC 4 mg Q2H PRN Administration NICOTINE REPLACEMENT RX Non-Formulary Medication 30 mg 11/10/16 10:00 12/08/16 10:12 Lansoprazole PO 30 mg DAILY LYDIA Administration Paroxetine HCl 30 mg 11/11/16 10:00 12/08/16 10:12 Paxil - PO 30 mg DAILY LYDIA Administration Multivit/Folic Acid/Iron 1 tab 11/10/16 10:00 12/08/16 10:12 Vitamins (Sjr) - PO 1 tab DAILY LYDIA Administration Pseudoephedrine/Triprolidine 1 combo 11/09/16 19:18 Actifed - PO TID PRN NASAL CONGESTION Thiamine HCl 100 mg 11/09/16 22:00 12/07/16 21:24 Vitamin B1 - PO 100 mg HS LYDIA Administration Trazodone HCl 100 mg 11/10/16 22:00 12/07/16 21:24 Desyrel - PO 100 mg HS LYDIA Administration Current Side Effect: No Lab tests ordered: Yes Lab tests reviewed: Yes Provider note:: Patient will complete this program on 12/09/16. He has met his treatment goals and will continue to address his issues in outpatient treatment at [facility]. 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 Scripts for 30 days supply of these medications will be electronically transmitted to [facility] . He is stable for discharge on 12/09/16 Total face to face time:: 35 Mental Status Exam - Mental Status Exam Alert and Oriented to: Time, Place, Person Cognitive Function: Fair Patient Appearance: Well Groomed Mood: Hopeful, Euthymic Affect: Appropriate Patient Behavior: Cooperative Speech Pattern: Clear Voice Loudness: Normal Thought Process: Intact Thought Disorder: Not Present Hallucinations: Denies Suicidal Ideation: Denies Homicidal Ideation: Denies Insight/Judgement: Fair Sleep: Fair Appetite: Good Muscle strength/Tone: Normal Gait/Station: Normal Psychiatric Treatment Plan - Problem List (1) Alcohol dependence Current Visit: Yes (2) Cocaine dependence, uncomplicated Current Visit: Yes (3) Cannabis dependence, uncomplicated Current Visit: Yes (4) Nicotine dependence Current Visit: Yes (5) Bipolar II disorder Current Visit: Yes (6) GERD with esophagitis Current Visit: Yes (7) HTN (hypertension) Current Visit: Yes Qualifiers: Hypertension type: essential hypertension (8) Hypercholesterolemia Current Visit: Yes (9) History of right hip replacement Current Visit: Yes Comment: 2015 Initial treatment plan: Patient will be discharged tomorrow and refeered to [facility] for outpatient treatment
[2016-12-08] MEDS: traZODone HCL 100 MG TABLET (FP) PO SCH (21:31)
[2016-12-08] MEDS: THIAMINE HCL 100 MG TABLET (FP) PO SCH (21:31)
[2016-12-09 06:36] VITALS: BP 116/72; PULSE 55; TEMP 98.4
[2016-12-09] MEDS: NICOTINE POLACRILEX 4 MG GUM BC PRN ×2 (06:57→09:05)
[2016-12-09] MEDS: PARoxetine HCL 10 MG TABLET (FP) PO SCH (09:01)
[2016-12-09] MEDS: lamoTRIgine 100 MG TABLET (FP) PO SCH (09:01)
[2016-12-09] MEDS: NICOTINE 21 MG/24 HOURS TOPICAL PATCH TD SCH (09:02)
[2016-12-09] MEDS: LURASIDONE HCL 20 MG TABLET PO SCH (09:02)
[2016-12-09] MEDS: PATIENT'S OWN MEDICATION (NON-FORMULARY) (Lansoprazole 30 MG) PO SCH (09:02)
[2016-12-09] MEDS: PRENATAL VITAMINS W/ FOLIC ACID TABLET (FP) PO SCH (09:03)
== END 2016-12-09 10:30 | disposition home or self-care (01) | DRG 895 ==
LOC: YASAS 11:38 → Y6N 17:28 → Y5N 11-13 12:57
PROVIDERS: ADMIT Internal Medicine Addiction Medicine; ATTEND Psychiatry & Neurology Psychiatry
PROC: HZ2ZZZZ Detoxification Services for Substance Abuse Treatment (ICD-10-PCS; principal; 2016-11-09)
PROC: HZ42ZZZ Group Counseling for Substance Abuse Treatment, Cognitive-Behavioral (ICD-10-PCS; 2016-11-13)
DX: F10.230 Alcohol dependence with withdrawal, uncomplicated (principal); F14.20 Cocaine dependence, uncomplicated; F31.81 Bipolar II disorder; F12.20 Cannabis dependence, uncomplicated; F17.210 Nicotine dependence, cigarettes, uncomplicated; E03.9 Hypothyroidism, unspecified; E78.00 Pure hypercholesterolemia, unspecified; K21.9 Gastro-esophageal reflux disease without esophagitis; I10 Essential (primary) hypertension; R00.1 Bradycardia, unspecified; Z96.641 Presence of right artificial hip joint; Z91.5 Personal history of self-harm
CPT/HCPCS: 36415; 80053; 81003; 85027; 86593; 93005; 93010